=== PATIENT | male | born 1935 | race Caucasian/White ===

== ENCOUNTER 2018-02-02 13:42 | Inpatient (IN) | payer MEDICARE, MEDICAID ==
[~2018-02-02] VITALS: Ht 175.3 cm; Wt 90.7 kg
[2018-02-02 16:14] LABS: BASOPHILS % 0.7 % (0.0-2.0); EOSINOPHILS % 5.6 % (0.0-5.0); HEMATOCRIT. 35.1 % (42.0-52.0); HEMOGLOBIN. 11.7 g/dL (14.0-18.0); LYMPHOCYTES % 22.1 % (20.0-50.0); MEAN CORPUSCULAR HEMOGLOBIN 29.5 pg (28.0-32.0); MEAN CORPUSCULAR VOLUME 88.7 fL (80.0-94.0); MEAN PLATELET VOLUME 6.6 fl (7.4-10.4); MONOCYTES % 12.3 % (2.0-8.0); NEUTROPHILS % 59.3 % (40.0-76.0); PLATELET 187 x1000/uL (130-400); RED BLOOD CELL COUNT 3.96 mill/uL (4.7-6.1); RED CELL DISTRIBUTION WIDTH 14.2 % (11.6-14.6)
[2018-02-02 16:24] LABS: PARTIAL THROMBOPLASTIN TIME 27.1 sec (23.4-31.0); PROTHROMBIN TIME 10.8 sec (9.4-11.6)
[2018-02-02 16:29] LABS: CHLORIDE 103 mEq/L (98-107)
[2018-02-02 16:36] LABS: CREATINE KINASE MB FRACTION 1.2 ng/mL (0.5-3.6); TROPONIN I < 0.02 ng/mL (0.00-0.04)
[2018-02-02 18:32] LABS: CLARITY URINE CLEAR (CLEAR); COLOR URINE YELLOW (YELLOW); KETONES URINE NEGATIVE (NEGATIVE); PROTEIN URINE TRACE (NEGATIVE)
[2018-02-02 18:33] LABS: NITRITE URINE NEGATIVE (NEGATIVE); OCCULT BLOOD URINE TRACE (NEGATIVE); UROBILINOGEN URINE 0.2 E.U./dL (0.2-1.0)
[2018-02-02 18:34] LABS: LEUKOCYTE ESTERASE URINE NEGATIVE (NEGATIVE)
[2018-02-02] MEDS ORDERED: ASPIRIN 325MG EC TABLET PO ONE (19:00)
[2018-02-02] MEDS ORDERED: IOHEXOL-350 100 ML BOTTLE ONE (19:49)
[2018-02-03] MEDS ORDERED: BICA50TA2 PO (02:26)
[2018-02-03] MEDS ORDERED: ACET-2178 PO (02:26)
[2018-02-03] MEDS ORDERED: LABE100T PO (02:30)
[2018-02-03] MEDS ORDERED: ROSU20TA PO (02:30)
[2018-02-03] MEDS ORDERED: FEXO180T87 PO (02:30)
[2018-02-03] MEDS ORDERED: TERA5CAP4 PO (02:31)
[2018-02-03] MEDS ORDERED: FURO40TA5 PO (02:31)
[2018-02-03] MEDS ORDERED: FLUT16SP15 BOTHNSTRLS (02:31)
[2018-02-03] MEDS ORDERED: FOLI-43 PO (02:31)
[2018-02-03] MEDS ORDERED: DICL100G16 TP (02:31)
[2018-02-03] MEDS ORDERED: RANI150T7 PO (02:31)
[2018-02-03 14:40] VITALS: BP 130/48
[2018-02-03 15:30] VITALS: BP 130/48
[2018-02-03 16:00] VITALS: BP 153/58
[2018-02-03] MEDS ORDERED: PNEUMOCOCCAL 23-VAL P-SAC VAC 0.5 ML IM ONE (17:25)
[2018-02-03 20:13] VITALS: BP 151/57
[2018-02-03] MEDS: LABETALOL HCL 100MG TABLET PO SCH (20:33)
[2018-02-04 00:13] VITALS: BP 120/48
[2018-02-04 04:00] VITALS: BP 136/67
[2018-02-04 08:00] VITALS: BP 138/58
[2018-02-04] MEDS ORDERED: BICALUTAMIDE 50 MG TABLET PO SCH (09:00)
[2018-02-04] MEDS ORDERED: FOLIC ACID 1MG TABLET PO SCH (09:00)
[2018-02-04] MEDS ORDERED: FUROSEMIDE 40MG TABLET PO SCH (09:00)
[2018-02-04] MEDS ORDERED: ASPIRIN 81MG EC TABLET PO SCH (09:00)
[2018-02-04] MEDS: LABETALOL HCL 100MG TABLET PO SCH (09:09)
[2018-02-04 12:00] VITALS: BP 133/64
[2018-02-04 16:00] VITALS: BP 137/58
[2018-02-04 17:50] VITALS: BP 133/64
== END 2018-02-04 18:32 | disposition home or self-care (01) | DRG 64 ==
LOC: ER 14:29 → 7WST 18:57 → EDBEDREQTM 19:00 → EDBEDREQ 19:00 → ENRESERV 02-03 13:51 → 7WST 02-03 15:24
PROVIDERS: ADMIT Specialist; ATTEND Specialist
DX: I63.9 Cerebral infarction, unspecified (principal); G93.41 Metabolic encephalopathy; E46 Unspecified protein-calorie malnutrition; E11.40 Type 2 diabetes mellitus with diabetic neuropathy, unspecified; I50.9 Heart failure, unspecified; E11.65 Type 2 diabetes mellitus with hyperglycemia; I11.0 Hypertensive heart disease with heart failure; E78.00 Pure hypercholesterolemia, unspecified; E78.5 Hyperlipidemia, unspecified; E86.0 Dehydration; I25.10 Atherosclerotic heart disease of native coronary artery without angina pectoris; M13.0 Polyarthritis, unspecified; Z85.46 Personal history of malignant neoplasm of prostate; Z79.899 Other long term (current) drug therapy; Z68.29 Body mass index [BMI] 29.0-29.9, adult
CPT/HCPCS: 36415; 70450; 70496; 70551; 71045; 80053; 80061; 81003; 82553; 82962; 83735; 83880; 84484; 85025; 85610; 85730; 90732; 93005; 97161; 99291; Q9967

== ENCOUNTER 2021-12-14 10:26 | Inpatient (IN) | payer MEDICARE, MEDICAID ==
[~2021-12-14] VITALS: Ht 165.1 cm; Wt 68.0 kg
[~2021-12-14 10:26] MED LIST: BICA50TA48 PO; DICL100G16 TP; FEXO180T87 PO; FLUT16SP15 BOTHNSTRLS; FOLI-43 PO; FURO40TA5 PO; LABE100T5 PO; RANI150T7 PO; ROSU20TA2 PO; TERA5CAP4 PO; TOPUD PO
[2021-12-14] MEDS ORDERED: ACETAMINOPHEN 325MG TABLET PO ONE (11:00)
[2021-12-14 11:54] LABS: BASOPHILS % 0.6 % (0.0-2.0); EOSINOPHILS % 1.5 % (0.0-5.0); HEMATOCRIT. 27.8 % (42.0-52.0); HEMOGLOBIN. 9.8 g/dL (14.0-18.0); LYMPHOCYTES % 10.2 % (20.0-50.0); MEAN CORPUSCULAR HEMOGLOBIN 31.8 pg (28.0-32.0); MEAN CORPUSCULAR VOLUME 90.2 fL (80.0-94.0); MEAN PLATELET VOLUME 6.4 fl (7.4-10.4); MONOCYTES % 10.3 % (2.0-8.0); NEUTROPHILS % 77.4 % (40.0-76.0); PLATELET 220 x1000/uL (130-400); RED BLOOD CELL COUNT 3.08 mill/uL (4.7-6.1); RED CELL DISTRIBUTION WIDTH 13.2 % (11.6-14.6)
[2021-12-14 11:58] LABS: CHLORIDE 115 mEq/L (98-107)
[2021-12-14 12:57] LABS: CLARITY URINE CLOUDY (CLEAR); COLOR URINE YELLOW (YELLOW); KETONES URINE NEGATIVE (NEGATIVE); LEUKOCYTE ESTERASE URINE NEGATIVE (NEGATIVE); NITRITE URINE NEGATIVE (NEGATIVE); OCCULT BLOOD URINE 3+ (NEGATIVE); PH URINE 5.5 (4.5-8.0); PROTEIN URINE 1+ (NEGATIVE); SPECIFIC GRAVITY URINE 1.015 (1.005-1.030); UROBILINOGEN URINE 0.2 E.U./dL (0.2-1.0)
[2021-12-14] MEDS ORDERED: ONDANSETRON HCL 4MG/2ML INJ IV PRN (21:00)
[2021-12-14] MEDS ORDERED: DOCUSATE SODIUM 100MG CAPSULE PO PRN (21:00)
[2021-12-14] MEDS ORDERED: HYDROMORPHONE HCL/PF 2MG/ML CPJ IV PRN (21:00)
[2021-12-14] MEDS: ENOXAPARIN 30MG/0.3ML SYR SUBCUT SCH (22:03)
[2021-12-14] MEDS: SODIUM CHLORIDE 0.45% 1,000 ML IV SCH (23:00)
[2021-12-15 00:30] VITALS: BP 127/46
[2021-12-15] MEDS: HYDROCODONE/APAP 7.5/325MG 1 TAB TABLET PO PRN ×2 (02:56→12:25)
[2021-12-15 04:00] VITALS: BP 141/56
[2021-12-15 07:13] LABS: CHLORIDE 114 mEq/L (98-107)
[2021-12-15 07:19] LABS: LDL CHOLESTEROL 49 mg/dL (5-100)
[2021-12-15 07:20] LABS: BASOPHILS % 0.4 % (0.0-2.0); EOSINOPHILS % 1.6 % (0.0-5.0); HEMATOCRIT. 28.6 % (42.0-52.0); HEMOGLOBIN. 9.7 g/dL (14.0-18.0); LYMPHOCYTES % 9.5 % (20.0-50.0); MEAN CORPUSCULAR HEMOGLOBIN 30.7 pg (28.0-32.0); MEAN CORPUSCULAR VOLUME 90.1 fL (80.0-94.0); MEAN PLATELET VOLUME 6.9 fl (7.4-10.4); MONOCYTES % 12.9 % (2.0-8.0); NEUTROPHILS % 75.6 % (40.0-76.0); PLATELET 211 x1000/uL (130-400); RED BLOOD CELL COUNT 3.17 mill/uL (4.7-6.1)
[2021-12-15 07:21] LABS: HDL CHOLESTEROL 50 mg/dL (40-59)
[2021-12-15 08:00] VITALS: BP 116/48
[2021-12-15] MEDS: AMLODIPINE 10MG TABLET PO SCH (09:25)
[2021-12-15] MEDS ORDERED: NALOXONE HCL 0.4MG/ML VIAL IV PRN (11:00)
[2021-12-15 12:00] VITALS: BP 131/53
[2021-12-15] MEDS: TERAZOSIN HCL 5MG CAPSULE PO SCH (12:24)
[2021-12-15 16:00] VITALS: BP 94/48
[2021-12-15] MEDS: ACETAMINOPHEN 325MG TABLET PO PRN (17:36)
[2021-12-15 20:00] VITALS: BP 91/45
[2021-12-15] MEDS: ENOXAPARIN 30MG/0.3ML SYR SUBCUT SCH (22:27)
[2021-12-15] MEDS: SODIUM CHLORIDE 0.45% 1,000 ML IV SCH ×2 (23:30→23:40)
[2021-12-16] VITALS: BP 105/50
[2021-12-16 04:00] VITALS: BP 130/63
[2021-12-16 05:42] LABS: CHLORIDE 113 mEq/L (98-107)
[2021-12-16 05:57] LABS: BASOPHILS % 0.3 % (0.0-2.0); EOSINOPHILS % 0.6 % (0.0-5.0); HEMATOCRIT. 26.6 % (42.0-52.0); HEMOGLOBIN. 9.3 g/dL (14.0-18.0); LYMPHOCYTES % 10.9 % (20.0-50.0); MEAN CORPUSCULAR HEMOGLOBIN 31.4 pg (28.0-32.0); MEAN PLATELET VOLUME 7.2 fl (7.4-10.4); MONOCYTES % 10.8 % (2.0-8.0); NEUTROPHILS % 77.4 % (40.0-76.0); PLATELET 192 x1000/uL (130-400); RED BLOOD CELL COUNT 2.95 mill/uL (4.7-6.1); RED CELL DISTRIBUTION WIDTH 13.1 % (11.6-14.6)
[2021-12-16 08:00] VITALS: BP 106/59
[2021-12-16] MEDS: TERAZOSIN HCL 5MG CAPSULE PO SCH (09:52)
[2021-12-16] MEDS: AMLODIPINE 10MG TABLET PO SCH (09:52)
[2021-12-16 12:00] VITALS: BP 112/43
[2021-12-16 16:00] VITALS: BP 99/46
[2021-12-16 20:00] VITALS: BP 102/60
[2021-12-16] MEDS: ENOXAPARIN 30MG/0.3ML SYR SUBCUT SCH (21:30)
[2021-12-16] MEDS: ACETAMINOPHEN 325MG TABLET PO PRN (22:47)
[2021-12-17 00:41] VITALS: BP 108/52
[2021-12-17] MEDS: SODIUM CHLORIDE 0.45% 1,000 ML IV SCH ×2 (03:10→16:16)
[2021-12-17 04:00] VITALS: BP 103/50
[2021-12-17 08:00] VITALS: BP 114/50
[2021-12-17] MEDS: AMLODIPINE 10MG TABLET PO SCH (09:35)
[2021-12-17] MEDS: TERAZOSIN HCL 5MG CAPSULE PO SCH (09:35)
[2021-12-17] MEDS ORDERED: HYDROCODONE/ACETAMINOPHEN 10/325MG TABLET PO PRN (10:45)
[2021-12-17] MEDS: LIDOCAINE 5% PATCH TOP SCH (10:45)
[2021-12-17 12:20] VITALS: BP 138/52
[2021-12-17 16:25] VITALS: BP 106/46
[2021-12-17] MEDS: ACETAMINOPHEN 325MG TABLET PO PRN (19:01)
[2021-12-17 20:00] VITALS: BP 102/52
[2021-12-17] MEDS: ENOXAPARIN 30MG/0.3ML SYR SUBCUT SCH (21:45)
[2021-12-18] VITALS: BP 112/52
[2021-12-18 04:00] VITALS: BP 109/54
[2021-12-18] MEDS: SODIUM CHLORIDE 0.45% 1,000 ML IV SCH ×2 (05:24→18:20)
[2021-12-18 08:10] VITALS: BP 96/47
[2021-12-18] MEDS: AMLODIPINE 10MG TABLET PO SCH (09:00)
[2021-12-18] MEDS: LIDOCAINE 5% PATCH TOP SCH (09:07)
[2021-12-18] MEDS: TERAZOSIN HCL 5MG CAPSULE PO SCH (09:07)
[2021-12-18 11:44] VITALS: BP 99/55
[2021-12-18 15:08] VITALS: BP 99/55
[2021-12-18 20:00] VITALS: BP 114/57
[2021-12-18] MEDS: ENOXAPARIN 30MG/0.3ML SYR SUBCUT SCH (20:05)
[2021-12-19] VITALS: BP 134/65
[2021-12-19] MEDS: SODIUM CHLORIDE 0.45% 1,000 ML IV SCH (00:35)
[2021-12-19 04:00] VITALS: BP 132/58
[2021-12-19 08:39] VITALS: BP 112/45
[2021-12-19] MEDS: AMLODIPINE 10MG TABLET PO SCH (09:07)
[2021-12-19] MEDS: TERAZOSIN HCL 5MG CAPSULE PO SCH (09:07)
[2021-12-19] MEDS: LIDOCAINE 5% PATCH TOP SCH (09:07)
[2021-12-19 11:46] VITALS: BP 121/45
[2021-12-19] MEDS: ACETAMINOPHEN 325MG TABLET PO PRN (11:49)
== END 2021-12-19 13:14 | disposition home or self-care (01) | DRG 166 ==
LOC: ER 10:26 → 6WST 17:24 → ENRESERV 21:11
PROVIDERS: ADMIT Hospitalist; ATTEND Hospitalist
PROC: 0JBP0ZZ Excision of Left Lower Leg Subcutaneous Tissue and Fascia, Open Approach (ICD-10-PCS; principal; 2021-12-15)
PROC: 0JBN0ZZ Excision of Right Lower Leg Subcutaneous Tissue and Fascia, Open Approach (ICD-10-PCS; 2021-12-15)
DX: S22.42XA Multiple fractures of ribs, left side, initial encounter for closed fracture (principal); E43 Unspecified severe protein-calorie malnutrition; N17.9 Acute kidney failure, unspecified; S81.802A Unspecified open wound, left lower leg, initial encounter; S81.801A Unspecified open wound, right lower leg, initial encounter; E78.00 Pure hypercholesterolemia, unspecified; W07.XXXA Fall from chair, initial encounter; E11.22 Type 2 diabetes mellitus with diabetic chronic kidney disease; E78.5 Hyperlipidemia, unspecified; I12.9 Hypertensive chronic kidney disease with stage 1 through stage 4 chronic kidney disease, or unspecified chronic kidney disease; N18.9 Chronic kidney disease, unspecified; R29.6 Repeated falls; Z20.822 Contact with and (suspected) exposure to COVID-19; Z88.8 Allergy status to other drugs, medicaments and biological substances; Y93.89 Activity, other specified; Y92.098 Other place in other non-institutional residence as the place of occurrence of the external cause; Y99.8 Other external cause status
CPT/HCPCS: 36415; 71101; 80053; 80061; 81003; 82962; 83735; 83880; 84484; 85025; 87426; 93005; 93306; 93923; 93970; 97162; 97166; 97535; 99285; C1893; J1170; J1650

== ENCOUNTER 2022-07-19 05:04 | Emergency (ER) | payer MEDICARE, MEDICAID ==
[~2022-07-19] VITALS: Ht 172.7 cm; Wt 70.0 kg
[2022-07-19 06:28] LABS: CHLORIDE 106 mEq/L (98-107)
[2022-07-19 06:38] LABS: ETHANOL BLOOD < 10 mg/dL
[2022-07-19 06:41] LABS: BASOPHILS % 0.4 % (0.0-2.0); EOSINOPHILS % 4.2 % (0.0-5.0); HEMATOCRIT. 29.1 % (42.0-52.0); HEMOGLOBIN. 9.5 g/dL (14.0-18.0); MEAN CORPUSCULAR HEMOGLOBIN 30.8 pg (28.0-32.0); MEAN CORPUSCULAR VOLUME 94.7 fL (80.0-94.0); MONOCYTES % 13.3 % (2.0-8.0); NEUTROPHILS % 65.1 % (40.0-76.0); PLATELET 164 x1000/uL (130-400); RED BLOOD CELL COUNT 3.08 mill/uL (4.7-6.1); RED CELL DISTRIBUTION WIDTH 14.4 % (11.6-14.6)
[2022-07-19 08:00] VITALS: BP 158/61
== END 2022-07-19 07:22 | disposition home or self-care (01) ==
LOC: ER 05:04
DX: M79.605 Pain in left leg (principal); M79.604 Pain in right leg; G89.11 Acute pain due to trauma; D64.9 Anemia, unspecified; I10 Essential (primary) hypertension; R41.82 Altered mental status, unspecified
CPT/HCPCS: 36415; 71045; 80053; 80320; 84484; 85025; 99285; G0480